=== PATIENT | male | born 1965 ===

== ENCOUNTER → 2023-11-18 | Outpatient (CLI) | payer MEDICAID ==
[~2023-11-18] VITALS: Ht 170.2 cm; Wt 197.0 kg
[2023-11-18 09:33] LABS: TOTAL HEMOGLOBIN 15.9 G/dl (14.0-17.9)
[2023-11-18 09:50] VITALS: PULSE 61; RESP 16; O2SAT 96
[2023-11-18] MEDS: albuterol 2.5 MG/3 ML nebule NEB ONE (09:50)
== END | disposition home or self-care (01) ==
LOC: RT 08:47
PROVIDERS: ATTEND Internal Medicine Pulmonary Disease
DX: J44.9 Chronic obstructive pulmonary disease, unspecified (principal)
CPT/HCPCS: 85018; 94060; 94727; 94729; 94760